=== PATIENT | female | born 1940 | race Caucasian/White ===

== ENCOUNTER 2016-06-24 08:06 | Emergency (ER) | payer OTHER ==
[~2016-06-24] VITALS: Ht 152.4 cm; Wt 61.4 kg
[2016-06-24] MEDS ORDERED: BARIUM SULFATE 0.1% SUSPENSION 450 ML BOTTLE PO ONE (08:30)
[2016-06-24] MEDS ORDERED: KETOROLAC TROMETHAMINE 30 MG/ML VIAL IVP ONE (08:30)
[2016-06-24] MEDS ORDERED: SODIUM CHLORIDE 0.9% 1,000 ML IV ONE (08:30)
[2016-06-24] MEDS ORDERED: ONDANSETRON HCL 4 MG/2 ML VIAL IVP ONE (08:30)
[2016-06-24 09:01] LABS: EOSINOPHILS % (AUTO) 0.3 % (1.0-6.0); LYMPHOCYTES # (AUTO) 0.6 K/uL (1.0-4.8); LYMPHOCYTES % (AUTO) 4.6 % (22.0-44.0); MEAN CORPUSCULAR HEMOGLOBIN 21.5 pg (26.0-34.0); MEAN CORPUSCULAR HGB CONC 30.4 G/dL (31.0-37.0); MEAN CORPUSCULAR VOLUME 71 fL (80-100); MONOCYTES # (AUTO) 0.6 K/uL (0.1-1.0); MONOCYTES % (AUTO) 4.8 % (2.0-9.0); NEUTROPHILS # (AUTO) 10.8 K/uL (1.8-7.7); PLATELET COUNT (AUTO) 593 K/uL (150-450); RED CELL DISTRIBUTION WIDTH 21.9 % (11.5-14.5); WHITE BLOOD COUNT (AUTO) 11.9 K/uL (4.5-11.0)
[2016-06-24 09:03] LABS: NEUTROPHILS % (AUTO) 90.3 % (40.0-70.0)
[2016-06-24 09:05] LABS: HEMOGLOBIN 4.7 g/dL (12.0-16.0)
[2016-06-24 09:06] LABS: HEMATOCRIT 15.5 % (36-46)
[2016-06-24 09:17] LABS: RBC MORPHOLOGY COMMENT ABNORMAL RBC MORPH
[2016-06-24 09:28] LABS: CALCIUM, TOTAL 8.1 mg/dL (8.8-10.5); CREATININE 1.11 mg/dL (0.60-1.30); POTASSIUM 4.8 mmol/L (3.5-5.1); TOTAL PROTEIN, SERUM 6.3 g/dL (6.4-8.2)
[2016-06-24 09:39] LABS: BILIRUBIN,TOTAL 0.1 mg/dL (0.1-1.0)
[2016-06-24] MEDS ORDERED: SODIUM CHLORIDE 0.9% 100 ML ONE (09:58)
[2016-06-24] MEDS ORDERED: IOVERSOL 320 MG/ML 100 ML VIAL ONE (09:58)
[2016-06-24] MEDS ORDERED: METOCLOPRAMIDE HCL 5 MG/ML 2 ML VIAL IVP ONE (10:00)
[2016-06-24] MEDS ORDERED: ACETAMINOPHEN 1000 MG/ISO-OSM 100 ML IV ONE (12:45)
[2016-06-24 14:03] VITALS: BP 119/74
[2016-06-24 14:18] VITALS: BP 109/82
[2016-06-24 14:33] VITALS: BP 123/64
== END 2016-06-24 14:48 | disposition short-term general hospital (02) ==
LOC: EMS 08:07
DX: I44.7 Left bundle-branch block, unspecified (principal); E87.1 Hypo-osmolality and hyponatremia; D64.9 Anemia, unspecified; R10.13 Epigastric pain
CPT/HCPCS: 36415; 71010; 74177; 80053; 82270; 82271; 83690; 84484; 85025; 86850; 86900; 86901; 86920; 93005; 96361; 96365; 96375; 99285; J0131; J1885; J2405; J2765; J7030; J7050; P9016; Q9967

== ENCOUNTER 2016-07-11 15:24 | Emergency (ER) | payer OTHER ==
[~2016-07-11] VITALS: Ht 154.9 cm; Wt 54.5 kg
[2016-07-11 15:54] LABS: BASOPHILS % (AUTO) 0.2 % (0.0-2.0); EOSINOPHILS % (AUTO) 1.6 % (1.0-6.0); HEMATOCRIT 31.3 % (36-46); HEMOGLOBIN 9.7 g/dL (12.0-16.0); LYMPHOCYTES # (AUTO) 1.1 K/uL (1.0-4.8); LYMPHOCYTES % (AUTO) 14.4 % (22.0-44.0); MEAN CORPUSCULAR HEMOGLOBIN 24.6 pg (26.0-34.0); MEAN CORPUSCULAR VOLUME 79 fL (80-100); MONOCYTES # (AUTO) 0.5 K/uL (0.1-1.0); MONOCYTES % (AUTO) 6.5 % (2.0-9.0); NEUTROPHILS # (AUTO) 5.7 K/uL (1.8-7.7); NEUTROPHILS % (AUTO) 77.3 % (40.0-70.0); PLATELET COUNT (AUTO) 440 K/uL (150-450); RED BLOOD CELL COUNT(AUTO) 3.94 MIL/uL (4.00-5.20); RED CELL DISTRIBUTION WIDTH 23.4 % (11.5-14.5); WHITE BLOOD COUNT (AUTO) 7.4 K/uL (4.5-11.0)
[2016-07-11 15:57] LABS: ADD UA MICROSCOPIC YES; APPEARANCE,URINE CLEAR (CLEAR); GLUCOSE, URINE (UA) NEGATIVE (NEGATIVE); KETONES,URINE NEGATIVE (NEGATIVE); LEUKOCYTE ESTERASE ,URINE TRACE (NEGATIVE); OCCULT BLOOD,URINE NEGATIVE (NEGATIVE); PH,URINE 5.5 (5.0-8.0); PROTEIN,URINE NEGATIVE (NEGATIVE)
[2016-07-11 16:04] LABS: RBC,URINE None Seen /HPF (0-2)
[2016-07-11 16:05] LABS: SQUAMOUS EPITHELIAL CELL,UR Few /LPF (None Seen)
[2016-07-11 16:07] LABS: INR 0.9 (0.9-1.1); PROTHROMBIN TIME 9.9 SEC (9.4-11.6)
[2016-07-11 16:15] LABS: ANION GAP 11 mmol/L (8-16); CALCIUM, TOTAL 8.5 mg/dL (8.8-10.5); CARBON DIOXIDE 24 mmol/L (22-29); CHLORIDE 93 mmol/L (98-107); CREATININE 0.89 mg/dL (0.60-1.30); GLOMERULAR FILTR. RATE CALC > 60 mL/min (>60); POTASSIUM 3.6 mmol/L (3.5-5.1); SODIUM SERUM 128 mmol/L (136-145); UREA NITROGEN, BLOOD 10 mg/dL (7-18)
[2016-07-11] MEDS ORDERED: MECLIZINE HCL 25 MG TABLET PO ONE (16:15)
[2016-07-11] MEDS ORDERED: SODIUM CHLORIDE 0.9% 1,000 ML IV ONE (16:15)
[2016-07-11 16:17] LABS: B-TYPE NATRIURETIC PEPTIDE 677 pg/mL (0-100)
[2016-07-11 16:19] LABS: RBC MORPHOLOGY COMMENT ABNORMAL RBC MORPH
[2016-07-11 16:21] LABS: ALANINE AMINOTRANSFERASE 15 U/L (12-78); ALBUMIN 3.5 g/dL (3.4-5.0); ASPARTATE AMINOTRANSFERASE 18 U/L (15-37); BILIRUBIN,TOTAL 0.2 mg/dL (0.1-1.0); CREATINE KINASE, TOTAL 41 U/L (26-192); TOTAL PROTEIN, SERUM 7.6 g/dL (6.4-8.2)
[2016-07-11] MEDS ORDERED: PROCHLORPERAZINE EDISYLATE 5 MG/ML 2 ML VIAL IM ONE (17:30)
[2016-07-11] MEDS ORDERED: PROCHLORPERAZINE EDISYLATE 5 MG/ML 2 ML VIAL IVP ONE (18:00)
[2016-07-11 19:13] VITALS: BP 111/82
== END 2016-07-11 19:30 | disposition home or self-care (01) ==
LOC: EMS 15:27
DX: E87.1 Hypo-osmolality and hyponatremia (principal); R53.1 Weakness; R42 Dizziness and giddiness; R79.89 Other specified abnormal findings of blood chemistry; R00.8 Other abnormalities of heart beat
CPT/HCPCS: 36415; 71010; 80053; 81001; 82271; 82550; 83880; 84484; 85025; 85610; 85730; 93005; 96361; 96374; 99291; J0780; J7030

== ENCOUNTER 2016-09-27 13:34 | Emergency (ER) | payer OTHER ==
[~2016-09-27] VITALS: Ht 154.9 cm; Wt 61.3 kg
[2016-09-27 14:05] LABS: BASOPHILS % (AUTO) 0.3 % (0.0-2.0); EOSINOPHILS % (AUTO) 0.3 % (1.0-6.0); HEMATOCRIT 38.3 % (36-46); HEMOGLOBIN 12.3 g/dL (12.0-16.0); LYMPHOCYTES # (AUTO) 0.4 K/uL (1.0-4.8); LYMPHOCYTES % (AUTO) 7.2 % (22.0-44.0); MEAN CORPUSCULAR HEMOGLOBIN 29.1 pg (26.0-34.0); MEAN CORPUSCULAR HGB CONC 32.2 G/dL (31.0-37.0); MEAN CORPUSCULAR VOLUME 90 fL (80-100); MONOCYTES # (AUTO) 0.3 K/uL (0.1-1.0); MONOCYTES % (AUTO) 5.5 % (2.0-9.0); NEUTROPHILS # (AUTO) 5.4 K/uL (1.8-7.7); PLATELET COUNT (AUTO) 357 K/uL (150-450); RED BLOOD CELL COUNT(AUTO) 4.23 MIL/uL (4.00-5.20); RED CELL DISTRIBUTION WIDTH 25.3 % (11.5-14.5); WHITE BLOOD COUNT (AUTO) 6.3 K/uL (4.5-11.0)
[2016-09-27 14:06] LABS: NEUTROPHILS % (AUTO) 86.7 % (40.0-70.0)
[2016-09-27 14:20] LABS: ANION GAP 9 mmol/L (8-16); CALCIUM, TOTAL 8.7 mg/dL (8.8-10.5); CARBON DIOXIDE 26 mmol/L (22-29); CHLORIDE 95 mmol/L (98-107); CREATININE 0.79 mg/dL (0.60-1.30); GLOMERULAR FILTR. RATE CALC > 60 mL/min (>60); SODIUM SERUM 130 mmol/L (136-145); UREA NITROGEN, BLOOD 6 mg/dL (7-18)
[2016-09-27 14:23] LABS: RBC MORPHOLOGY COMMENT ABNORMAL RBC MORPH
[2016-09-27 14:26] LABS: ALANINE AMINOTRANSFERASE 17 U/L (12-78); ALBUMIN 3.8 g/dL (3.4-5.0); ASPARTATE AMINOTRANSFERASE 17 U/L (15-37); BILIRUBIN,TOTAL 0.3 mg/dL (0.1-1.0); TOTAL PROTEIN, SERUM 7.5 g/dL (6.4-8.2)
[2016-09-27 14:30] LABS: B-TYPE NATRIURETIC PEPTIDE 527 pg/mL (0-100)
[2016-09-27] MEDS ORDERED: FUROSEMIDE 40 MG/4 ML VIAL IVP ONE (15:00)
[2016-09-27] MEDS ORDERED: ONDANSETRON HCL 4 MG/2 ML VIAL IVP ONE ×2 (16:15→17:45)
[2016-09-27 18:16] VITALS: BP 145/75
[2016-09-27] MEDS ORDERED: ACETAMINOPHEN 500 MG TABLET PO ONE (18:30)
== END 2016-09-27 19:05 | disposition short-term general hospital (02) ==
LOC: EMS 13:35
DX: I50.9 Heart failure, unspecified (principal); R06.02 Shortness of breath; Z91.14 Patient's other noncompliance with medication regimen
CPT/HCPCS: 36415; 71010; 80053; 83880; 84484; 85025; 93005; 96374; 96375; 96376; 99285; J1940; J2405

== ENCOUNTER 2016-09-29 11:11 | Emergency (ER) | payer OTHER ==
[~2016-09-29] VITALS: Ht 152.4 cm; Wt 61.0 kg
[2016-09-29] MEDS ORDERED: hypertension PO (11:22)
[2016-09-29] MEDS ORDERED: [UNRECOGNIZED DRUG - OTHER] PO (11:22)
[2016-09-29] MEDS ORDERED: SODIUM CHLORIDE 0.9% 1,000 ML IV ONE (13:30)
[2016-09-29] MEDS ORDERED: DIAZEPAM 2 MG TABLET PO ONE (13:30)
[2016-09-29] MEDS ORDERED: MECLIZINE HCL 25 MG TABLET PO ONE (13:30)
[2016-09-29] MEDS ORDERED: ONDANSETRON HCL 4 MG/2 ML VIAL IVP ONE (13:30)
[2016-09-29 13:40] LABS: BASOPHILS # (AUTO) 0.03 K/uL (0.00-0.20); BASOPHILS % (AUTO) 0.4 % (0.0-2.0); EOSINOPHILS # (AUTO) 0.04 K/uL (0.00-0.70); EOSINOPHILS % (AUTO) 0.56 % (1.0-6.0); HEMATOCRIT 36.1 % (36-46); HEMOGLOBIN 11.9 g/dL (12.0-16.0); LYMPHOCYTES # (AUTO) 0.8 K/uL (1.0-4.8); LYMPHOCYTES % (AUTO) 10.7 % (22.0-44.0); MEAN CORPUSCULAR VOLUME 91 fL (80-100); MONOCYTES # (AUTO) 0.7 K/uL (0.1-1.0); NEUTROPHILS % (AUTO) 79.3 % (40.0-70.0); PLATELET COUNT (AUTO) 362 K/uL (150-450); RED BLOOD CELL COUNT(AUTO) 3.97 MIL/uL (4.00-5.20); RED CELL DISTRIBUTION WIDTH 25.5 % (11.5-14.5); WHITE BLOOD COUNT (AUTO) 7.5 K/uL (4.5-11.0)
[2016-09-29 13:42] LABS: RBC MORPHOLOGY COMMENT ABNORMAL RBC MORPH
[2016-09-29 13:56] LABS: ANION GAP 7 mmol/L (8-16); CALCIUM, TOTAL 9.1 mg/dL (8.8-10.5); CARBON DIOXIDE 29 mmol/L (22-29); CHLORIDE 94 mmol/L (98-107); CREATININE 0.84 mg/dL (0.60-1.30); GLOMERULAR FILTR. RATE CALC > 60 mL/min (>60); POTASSIUM 5.2 mmol/L (3.5-5.1); SODIUM SERUM 130 mmol/L (136-145); UREA NITROGEN, BLOOD 17 mg/dL (7-18)
[2016-09-29 14:02] LABS: ALANINE AMINOTRANSFERASE 19 U/L (12-78); ASPARTATE AMINOTRANSFERASE 17 U/L (15-37); BILIRUBIN,TOTAL 0.2 mg/dL (0.1-1.0); CREATINE KINASE, TOTAL 68 U/L (26-192); TOTAL PROTEIN, SERUM 7.4 g/dL (6.4-8.2)
[2016-09-29] MEDS ORDERED: ACETAMINOPHEN 500 MG TABLET PO ONE (15:45)
[2016-09-29] MEDS ORDERED: HYDROCODONE/ACETAMINOPHEN 5-325 MG TABLET PO ONE (15:45)
[2016-09-29 18:30] VITALS: BP 125/82
[2016-09-29 20:47] LABS: GLUCOSE,POINT OF CARE 107 MG/DL (70-110)
== END 2016-09-29 19:35 | disposition short-term general hospital (02) ==
LOC: EMS 11:12
DX: R42 Dizziness and giddiness (principal); R26.81 Unsteadiness on feet; I10 Essential (primary) hypertension; F17.210 Nicotine dependence, cigarettes, uncomplicated
CPT/HCPCS: 36415; 70450; 80053; 82550; 82962; 84484; 85025; 93005; 96361; 96374; 99285; J2405; J7030

== ENCOUNTER 2016-10-03 15:33 | Emergency (ER) | payer OTHER ==
[~2016-10-03] VITALS: Ht 154.9 cm; Wt 61.4 kg
[~2016-10-03 15:33] MED LIST: [UNRECOGNIZED DRUG - OTHER] PO; hypertension PO
[2016-10-03] MEDS ORDERED: ONDANSETRON HCL 4 MG/2 ML VIAL IVP ONE (16:45)
[2016-10-03] MEDS ORDERED: KETOROLAC TROMETHAMINE 30 MG/ML VIAL IVP ONE (16:45)
[2016-10-03] MEDS ORDERED: SODIUM CHLORIDE 0.9% 1,000 ML IV ONE (16:45)
[2016-10-03 16:56] LABS: BASOPHILS # (AUTO) 0.03 K/uL (0.00-0.20); BASOPHILS % (AUTO) 0.4 % (0.0-2.0); EOSINOPHILS # (AUTO) 0.02 K/uL (0.00-0.70); EOSINOPHILS % (AUTO) 0.22 % (1.0-6.0); HEMATOCRIT 36.2 % (36-46); HEMOGLOBIN 12.1 g/dL (12.0-16.0); LYMPHOCYTES # (AUTO) 0.8 K/uL (1.0-4.8); MEAN CORPUSCULAR HEMOGLOBIN 30.1 pg (26.0-34.0); MEAN CORPUSCULAR HGB CONC 33.3 G/dL (31.0-37.0); MEAN CORPUSCULAR VOLUME 90 fL (80-100); MONOCYTES # (AUTO) 0.7 K/uL (0.1-1.0); MONOCYTES % (AUTO) 8.6 % (2.0-9.0); NEUTROPHILS # (AUTO) 6.8 K/uL (1.8-7.7); NEUTROPHILS % (AUTO) 81.8 % (40.0-70.0); PLATELET COUNT (AUTO) 364 K/uL (150-450); RED BLOOD CELL COUNT(AUTO) 4.01 MIL/uL (4.00-5.20); RED CELL DISTRIBUTION WIDTH 24.3 % (11.5-14.5); WHITE BLOOD COUNT (AUTO) 8.3 K/uL (4.5-11.0)
[2016-10-03 17:08] LABS: CALCIUM, TOTAL 9.1 mg/dL (8.8-10.5); CREATININE 0.98 mg/dL (0.60-1.30); POTASSIUM 4.2 mmol/L (3.5-5.1)
[2016-10-03 17:13] LABS: ALBUMIN 3.9 g/dL (3.4-5.0); BILIRUBIN,TOTAL 0.2 mg/dL (0.1-1.0); TOTAL PROTEIN, SERUM 7.4 g/dL (6.4-8.2)
[2016-10-03] MEDS ORDERED: MORPHINE SULFATE 4 MG/ML SYRINGE IVP ONE (19:15)
[2016-10-03 19:57] VITALS: BP 155/87
== END 2016-10-03 20:41 | disposition short-term general hospital (02) ==
LOC: EMS 15:34
DX: R10.13 Epigastric pain (principal); K83.8 Other specified diseases of biliary tract; F17.210 Nicotine dependence, cigarettes, uncomplicated; I10 Essential (primary) hypertension; I50.9 Heart failure, unspecified; G43.909 Migraine, unspecified, not intractable, without status migrainosus
CPT/HCPCS: 36415; 71010; 76705; 80053; 83690; 84484; 85025; 93005; 96361; 96374; 96375; 99285; J1885; J2270; J2405; J7030

== ENCOUNTER 2016-10-07 11:29 | Emergency (ER) | payer OTHER ==
[~2016-10-07] VITALS: Ht 152.4 cm; Wt 59.0 kg
[2016-10-07] MEDS ORDERED: SODIUM CHLORIDE 0.9% 1,000 ML IV ONE (12:00)
[2016-10-07] MEDS ORDERED: ONDANSETRON HCL 4 MG/2 ML VIAL IVP ONE ×2 (12:00→12:15)
[2016-10-07] MEDS ORDERED: HYDROmorphone 2 MG/ML SYRINGE IVP ONE (12:15)
[2016-10-07 12:21] LABS: BASOPHILS # (AUTO) 0.02 K/uL (0.00-0.20); BASOPHILS % (AUTO) 0.5 % (0.0-2.0); EOSINOPHILS # (AUTO) 0.08 K/uL (0.00-0.70); EOSINOPHILS % (AUTO) 1.49 % (1.0-6.0); HEMATOCRIT 36.7 % (36-46); HEMOGLOBIN 12.1 g/dL (12.0-16.0); LYMPHOCYTES # (AUTO) 0.8 K/uL (1.0-4.8); LYMPHOCYTES % (AUTO) 14.5 % (22.0-44.0); MEAN CORPUSCULAR HEMOGLOBIN 30.1 pg (26.0-34.0); MEAN CORPUSCULAR VOLUME 91 fL (80-100); MONOCYTES # (AUTO) 0.5 K/uL (0.1-1.0); MONOCYTES % (AUTO) 8.7 % (2.0-9.0); NEUTROPHILS # (AUTO) 3.9 K/uL (1.8-7.7); NEUTROPHILS % (AUTO) 74.8 % (40.0-70.0); PLATELET COUNT (AUTO) 360 K/uL (150-450); RED BLOOD CELL COUNT(AUTO) 4.03 MIL/uL (4.00-5.20); RED CELL DISTRIBUTION WIDTH 24.7 % (11.5-14.5); WHITE BLOOD COUNT (AUTO) 5.3 K/uL (4.5-11.0)
[2016-10-07 12:26] LABS: ANION GAP 13 mmol/L (8-16); CALCIUM, TOTAL 9.6 mg/dL (8.8-10.5); CARBON DIOXIDE 23 mmol/L (22-29); CHLORIDE 95 mmol/L (98-107); CREATININE 0.93 mg/dL (0.60-1.30); GLOMERULAR FILTR. RATE CALC 58 mL/min (>60); POTASSIUM 4.2 mmol/L (3.5-5.1); SODIUM SERUM 131 mmol/L (136-145); UREA NITROGEN, BLOOD 12 mg/dL (7-18)
[2016-10-07 12:33] LABS: ALANINE AMINOTRANSFERASE 21 U/L (12-78); ALBUMIN 3.8 g/dL (3.4-5.0); ASPARTATE AMINOTRANSFERASE 18 U/L (15-37); BILIRUBIN,TOTAL 0.3 mg/dL (0.1-1.0); CREATINE KINASE, TOTAL 38 U/L (26-192); TOTAL PROTEIN, SERUM 7.4 g/dL (6.4-8.2)
[2016-10-07 12:47] LABS: B-TYPE NATRIURETIC PEPTIDE 384 pg/mL (0-100); PROTHROMBIN TIME 10.4 SEC (9.4-11.6)
[2016-10-07 12:50] LABS: RBC MORPHOLOGY COMMENT ABNORMAL RBC MORPH
[2016-10-07] MEDS ORDERED: ACETAMINOPHEN 325 MG TABLET PO ONE (14:15)
[2016-10-07 15:28] LABS: APPEARANCE,URINE CLEAR (CLEAR); GLUCOSE, URINE (UA) NEGATIVE (NEGATIVE); KETONES,URINE NEGATIVE (NEGATIVE); LEUKOCYTE ESTERASE ,URINE NEGATIVE (NEGATIVE); OCCULT BLOOD,URINE NEGATIVE (NEGATIVE); PROTEIN,URINE NEGATIVE (NEGATIVE)
[2016-10-07 15:30] LABS: ADD UA MICROSCOPIC NO
[2016-10-07 16:20] VITALS: BP 136/65
== END 2016-10-07 16:25 | disposition home or self-care (01) ==
LOC: EMS 11:30
DX: R10.13 Epigastric pain (principal); R11.2 Nausea with vomiting, unspecified; I11.0 Hypertensive heart disease with heart failure; I50.9 Heart failure, unspecified; F17.210 Nicotine dependence, cigarettes, uncomplicated
CPT/HCPCS: 36415; 71010; 76700; 80053; 81003; 82550; 83690; 83880; 84484; 85025; 85610; 85730; 93005; 96361; 96374; 96375; 99285; J1170; J2405; J7030

== ENCOUNTER 2016-10-22 15:47 | Emergency (ER) | payer OTHER ==
[~2016-10-22] VITALS: Ht 160 cm; Wt 72.5 kg
[2016-10-22 16:49] LABS: BASOPHILS % (AUTO) 0.4 % (0.0-2.0); EOSINOPHILS % (AUTO) 1.6 % (1.0-6.0); HEMATOCRIT 36.8 % (36-46); HEMOGLOBIN 11.9 g/dL (12.0-16.0); LYMPHOCYTES # (AUTO) 1.3 K/uL (1.0-4.8); LYMPHOCYTES % (AUTO) 15.7 % (22.0-44.0); MEAN CORPUSCULAR HEMOGLOBIN 29.6 pg (26.0-34.0); MEAN CORPUSCULAR HGB CONC 32.2 G/dL (31.0-37.0); MEAN CORPUSCULAR VOLUME 92 fL (80-100); MONOCYTES # (AUTO) 0.5 K/uL (0.1-1.0); MONOCYTES % (AUTO) 6.1 % (2.0-9.0); NEUTROPHILS # (AUTO) 6.3 K/uL (1.8-7.7); NEUTROPHILS % (AUTO) 76.2 % (40.0-70.0); PLATELET COUNT (AUTO) 321 K/uL (150-450); RED CELL DISTRIBUTION WIDTH 21.4 % (11.5-14.5); WHITE BLOOD COUNT (AUTO) 8.3 K/uL (4.5-11.0)
[2016-10-22 16:56] LABS: CALCIUM, TOTAL 9.4 mg/dL (8.8-10.5); CREATININE 1.33 mg/dL (0.60-1.30)
[2016-10-22] MEDS ORDERED: MECLIZINE HCL 25 MG TABLET PO ONE (17:00)
[2016-10-22] MEDS ORDERED: SODIUM CHLORIDE 0.9% 1,000 ML IV ONE (17:00)
[2016-10-22 17:02] LABS: BILIRUBIN,TOTAL 0.2 mg/dL (0.1-1.0); TOTAL PROTEIN, SERUM 7.7 g/dL (6.4-8.2)
[2016-10-22 17:13] LABS: RBC MORPHOLOGY COMMENT ABNORMAL RBC MORPH
[2016-10-22] MEDS ORDERED: ACETAMINOPHEN 500 MG TABLET PO ONE (17:15)
[2016-10-22] MEDS ORDERED: HydrALAZINE HCL 20 MG/ML VIAL IVP ONE (19:00)
[2016-10-22 19:27] LABS: APPEARANCE,URINE CLEAR (CLEAR); GLUCOSE, URINE (UA) NEGATIVE (NEGATIVE); KETONES,URINE NEGATIVE (NEGATIVE); LEUKOCYTE ESTERASE ,URINE NEGATIVE (NEGATIVE); OCCULT BLOOD,URINE NEGATIVE (NEGATIVE); PH,URINE 5.5 (5.0-8.0); PROTEIN,URINE NEGATIVE (NEGATIVE)
[2016-10-22 19:43] VITALS: BP 123/92
[2016-10-22 19:46] LABS: SQUAMOUS EPITHELIAL CELL,UR Rare /LPF (None Seen)
[2016-10-22 19:47] LABS: RBC,URINE 0-2 /HPF (0-2); WBC,URINE 0-2 /HPF (0-5)
== END 2016-10-22 20:05 | disposition home or self-care (01) ==
LOC: EMS 15:52
DX: E87.1 Hypo-osmolality and hyponatremia (principal); R42 Dizziness and giddiness; I11.0 Hypertensive heart disease with heart failure; I50.9 Heart failure, unspecified; F17.210 Nicotine dependence, cigarettes, uncomplicated
CPT/HCPCS: 36415; 51701; 70450; 80053; 81001; 84484; 85025; 93005; 96361; 96374; 99285; J0360; J7030

== ENCOUNTER 2016-10-23 04:48 | Inpatient (IN) | payer OTHER ==
[~2016-10-23] VITALS: Ht 152.4 cm; Wt 68.3 kg
[2016-10-23] MEDS ORDERED: MORPHINE SULFATE 4 MG/ML SYRINGE IVP ONE (05:15)
[2016-10-23] MEDS ORDERED: ONDANSETRON HCL 4 MG/2 ML VIAL IVP ONE ×2 (05:15→09:30)
[2016-10-23 05:25] LABS: BASOPHILS # (AUTO) 0.02 K/uL (0.00-0.20); BASOPHILS % (AUTO) 0.2 % (0.0-2.0); EOSINOPHILS # (AUTO) 0.27 K/uL (0.00-0.70); EOSINOPHILS % (AUTO) 2.78 % (1.0-6.0); HEMATOCRIT 35.1 % (36-46); HEMOGLOBIN 11.7 g/dL (12.0-16.0); LYMPHOCYTES # (AUTO) 1.2 K/uL (1.0-4.8); LYMPHOCYTES % (AUTO) 11.9 % (22.0-44.0); MEAN CORPUSCULAR HEMOGLOBIN 30.9 pg (26.0-34.0); MEAN CORPUSCULAR HGB CONC 33.2 G/dL (31.0-37.0); MEAN CORPUSCULAR VOLUME 93 fL (80-100); MONOCYTES # (AUTO) 0.8 K/uL (0.1-1.0); MONOCYTES % (AUTO) 7.8 % (2.0-9.0); NEUTROPHILS # (AUTO) 7.4 K/uL (1.8-7.7); NEUTROPHILS % (AUTO) 77.3 % (40.0-70.0); PLATELET COUNT (AUTO) 310 K/uL (150-450); RED BLOOD CELL COUNT(AUTO) 3.77 MIL/uL (4.00-5.20); RED CELL DISTRIBUTION WIDTH 21.7 % (11.5-14.5); WHITE BLOOD COUNT (AUTO) 9.6 K/uL (4.5-11.0)
[2016-10-23] MEDS ORDERED: HydrALAZINE HCL 20 MG/ML VIAL IVP ONE (05:30)
[2016-10-23 05:35] LABS: CREATININE 1.14 mg/dL (0.60-1.30); POTASSIUM 4.2 mmol/L (3.5-5.1)
[2016-10-23 05:40] LABS: ALBUMIN 3.8 g/dL (3.4-5.0); BILIRUBIN,TOTAL 0.2 mg/dL (0.1-1.0); TOTAL PROTEIN, SERUM 7.5 g/dL (6.4-8.2)
[2016-10-23] MEDS ORDERED: SODIUM CHLORIDE 0.9% 100 ML ONE (05:47)
[2016-10-23] MEDS ORDERED: IOVERSOL 350 MG/ML 100 ML VIAL ONE (05:47)
[2016-10-23 05:55] LABS: PROTHROMBIN TIME 10.1 SEC (9.4-11.6)
[2016-10-23] MEDS ORDERED: MethylPREDNISolone SOD SUCC 125 MG/2 ML VIAL ONE (06:15)
[2016-10-23] MEDS ORDERED: DiphenhydrAMINE HCL 50 MG/ML VIAL IVP ONE (06:15)
[2016-10-23] MEDS ORDERED: DiphenhydrAMINE HCL 50 MG/ML VIAL ONE (06:15)
[2016-10-23] MEDS ORDERED: MethylPREDNISolone SOD SUCC 125 MG/2 ML VIAL IVP ONE (06:15)
[2016-10-23 08:37] LABS: APPEARANCE,URINE CLEAR (CLEAR); GLUCOSE, URINE (UA) NEGATIVE (NEGATIVE); KETONES,URINE NEGATIVE (NEGATIVE); LEUKOCYTE ESTERASE ,URINE NEGATIVE (NEGATIVE); OCCULT BLOOD,URINE NEGATIVE (NEGATIVE); PROTEIN,URINE NEGATIVE (NEGATIVE)
[2016-10-23 08:38] LABS: ADD UA MICROSCOPIC NO
[2016-10-23] MEDS ORDERED: NITROGLYCERIN 2% (1 GM=INCH) PACKET TP ONE (09:15)
[2016-10-23] MEDS ORDERED: FUROSEMIDE 40 MG/4 ML VIAL IVP ONE (09:15)
[2016-10-23 09:30] LABS: CALCIUM, TOTAL 9.3 mg/dL (8.8-10.5); CREATININE 1.03 mg/dL (0.60-1.30); POTASSIUM 4.3 mmol/L (3.5-5.1)
[2016-10-23] MEDS ORDERED: OxyCODONE HCL/ACETAMINOPHEN 5-325 MG TABLET PO PRN (09:45)
[2016-10-23] MEDS ORDERED: ACETAMINOPHEN 325 MG TABLET PO PRN (09:45)
[2016-10-23] MEDS ORDERED: PANTOPRAZOLE SODIUM 40 MG DR TABLET PO SCH (09:45)
[2016-10-23] MEDS ORDERED: ALBUTEROL SULFATE 2.5 MG/0.5 ML NEB SOLUTION NEB PRN (09:45)
[2016-10-23] MEDS ORDERED: ASPIRIN 81 MG CHEWABLE TABLET PO SCH (09:45)
[2016-10-23 10:46] VITALS: BP 141/91
[2016-10-23] MEDS ORDERED: HEPARIN SODIUM,PORCINE 5,000 UNITS/ML VIAL SQ SCH (16:00)
[2016-10-23] MEDS ORDERED: DOCUSATE SODIUM 100 MG CAPSULE PO SCH (21:00)
== END 2016-10-23 14:15 | disposition left against medical advice (07) | DRG 392 ==
LOC: EMS 04:50 → 5S 09:37
PROVIDERS: ADMIT Internal Medicine; ATTEND Internal Medicine
DX: R10.13 Epigastric pain (principal); R07.9 Chest pain, unspecified; I11.0 Hypertensive heart disease with heart failure; G43.909 Migraine, unspecified, not intractable, without status migrainosus; Z53.21 Procedure and treatment not carried out due to patient leaving prior to being seen by health care provider; K83.8 Other specified diseases of biliary tract; I50.9 Heart failure, unspecified; F17.210 Nicotine dependence, cigarettes, uncomplicated; I44.7 Left bundle-branch block, unspecified; I25.2 Old myocardial infarction; J44.9 Chronic obstructive pulmonary disease, unspecified; Z87.11 Personal history of peptic ulcer disease; Z82.49 Family history of ischemic heart disease and other diseases of the circulatory system
CPT/HCPCS: 71260; 72193; 74160; 93005; 93306; 96374; 96375; 96376; 99291; J0360; J1200; J1940; J2270; J2405; J2930; J7050

== ENCOUNTER 2017-01-21 18:28 | Emergency (ER) | payer OTHER ==
[~2017-01-21] VITALS: Ht 152.4 cm; Wt 72.7 kg
[2017-01-21] MEDS ORDERED: SODIUM CHLORIDE 0.9% 100 ML ONE (18:59)
[2017-01-21] MEDS ORDERED: IOVERSOL 350 MG/ML 150 ML VIAL ONE (18:59)
[2017-01-21] MEDS ORDERED: ONDANSETRON HCL 4 MG/2 ML VIAL IVP ONE ×2 (19:15→20:00)
[2017-01-21 19:17] LABS: BASOPHILS % (AUTO) 0.6 % (0.0-2.0); EOSINOPHILS % (AUTO) 2.4 % (1.0-6.0); HEMATOCRIT 31.6 % (36-46); HEMOGLOBIN 10.8 g/dL (12.0-16.0); LYMPHOCYTES % (AUTO) 12.3 % (22.0-44.0); MEAN CORPUSCULAR HEMOGLOBIN 32.4 pg (26.0-34.0); MEAN CORPUSCULAR HGB CONC 34.1 G/dL (31.0-37.0); MEAN CORPUSCULAR VOLUME 95 fL (80-100); MONOCYTES # (AUTO) 0.6 K/uL (0.1-1.0); NEUTROPHILS # (AUTO) 6.2 K/uL (1.8-7.7); NEUTROPHILS % (AUTO) 76.7 % (40.0-70.0); PLATELET COUNT (AUTO) 257 K/uL (150-450); RED BLOOD CELL COUNT(AUTO) 3.32 MIL/uL (4.00-5.20); RED CELL DISTRIBUTION WIDTH 14.8 % (11.5-14.5); WHITE BLOOD COUNT (AUTO) 8.1 K/uL (4.5-11.0)
[2017-01-21 19:28] LABS: PROTHROMBIN TIME 10.1 SEC (9.4-11.6)
[2017-01-21 19:33] LABS: ADD UA MICROSCOPIC YES; APPEARANCE,URINE CLEAR (CLEAR); GLUCOSE, URINE (UA) 100 mg/dL (NEGATIVE); KETONES,URINE NEGATIVE (NEGATIVE); LEUKOCYTE ESTERASE ,URINE MODERATE (NEGATIVE); OCCULT BLOOD,URINE NEGATIVE (NEGATIVE); PROTEIN,URINE NEGATIVE (NEGATIVE)
[2017-01-21 19:43] LABS: RBC,URINE None Seen /HPF (0-2); SQUAMOUS EPITHELIAL CELL,UR Rare /LPF (None Seen)
[2017-01-21] MEDS ORDERED: MORPHINE SULFATE 2 MG/ML SYRINGE IVP ONE (20:00)
[2017-01-21 20:35] LABS: ALBUMIN 3.9 g/dL (3.4-5.0); BILIRUBIN,TOTAL 0.3 mg/dL (0.1-1.0); CREATININE 1.17 mg/dL (0.60-1.30); POTASSIUM 4.3 mmol/L (3.5-5.1); TOTAL PROTEIN, SERUM 7.3 g/dL (6.4-8.2)
[2017-01-21] MEDS ORDERED: BARIUM SULFATE 0.1% SUSPENSION 450 ML BOTTLE PO ONE (20:45)
[2017-01-22 00:25] VITALS: BP 142/71
== END 2017-01-22 00:47 | disposition short-term general hospital (02) ==
LOC: EMS 18:29
DX: K56.7 Ileus, unspecified (principal); E87.1 Hypo-osmolality and hyponatremia; I11.0 Hypertensive heart disease with heart failure; I50.9 Heart failure, unspecified; G43.909 Migraine, unspecified, not intractable, without status migrainosus; F17.210 Nicotine dependence, cigarettes, uncomplicated
CPT/HCPCS: 36415; 71010; 74177; 80053; 81001; 83690; 83880; 84484; 85025; 85610; 85730; 87077; 87086; 87186; 93005; 96374; 96375; 99291; J2270; J2405; J7050; Q9967